=== PATIENT | male | born 1975 | race Caucasian/White ===

== ENCOUNTER 2016-11-22 08:50 | Inpatient (IN) | payer OTHER ==
[2016-11-22] MEDS ORDERED: ACETAMINOPHEN 500 MG TAB ONE (10:08)
[2016-11-22] MEDS ORDERED: HYDROmorphONE/DILAUDID 1 MG/ML SYR IVP ONE (10:45)
[2016-11-22] MEDS ORDERED: ACETAMINOPHEN 500 MG TAB PO ONE (10:45)
--- NOTE | 2016-11-22 10:59 | EDPHY ---
H & P Time Seen by Provider: 11/22/16 09:22 HPI/ROS: CHIEF COMPLAINT: Cough fever and headache HISTORY OF PRESENT ILLNESS: Patient's symptoms started 6 days ago. There has been a viral syndrome that is gone through his entire family including his and 3 kids. 1 of them is on antibiotics for pneumonia. Started with a headache and nonproductive cough and a fever last week on Tuesday which got better on Tuesday and worse over the weekend to a temperature of a 103 degrees over the weekend. He started on Augmentin at urgent care in [place] on Tuesday. Last night his temperature was 103.1degrees. Today presents with symptoms that are severe. He describes frontal headache and continued fever and cough. He does not have shortness of breath. Denies foreign travel to developing country or IV drug abuse. Not associated with neck stiffness. REVIEW OF SYSTEMS: Eye: no change in vision ENT: no sore throat Cardiac: no chest pain or syncope Pulmonary: HPI Abdomen: No vomiting or abdominal pain, he has some intermittent diarrhea as part of his ulcerative colitis but that is within baseline. Musculoskeletal: no back pain Skin: no rash Neuro: Frontal headache. No confusion or difficulty with speech or ataxia. Constitutional: HPI : no urinary symptoms A comprehensive 10 point review of systems is otherwise negative aside from elements mentioned in the history of present illness. PAST MEDICAL HISTORY: Ulcerative colitis on azathioprine Social history: No travel or IV drug abuse General Appearance: Alert and conversant, cooperative. Eyes: No scleral icterus. ENT, Mouth: Normal mucous membranes. Normal pharynx without trismus or tonsillar hypertrophy or exudate. Does not have facial swelling or sinus tenderness. Respiratory: Decreased breath sounds at the left base. Speaks in full sentences. Cardiovascular: Regular rate and rhythm. No murmur. Gastrointestinal: Abdomen is soft and non tender. Neurological: Alert and oriented x3. Normally conversant. Face symmetric, normal movement and sensation in all extremities. Skin: Warm and dry, no rashes. No petechiae or purpura. Musculoskeletal: Normal range of motion of the neck, not stiff, no meningeal signs. Psychiatric: Not agitated. Emergency Department course/MDM: Patient has chest x-ray which shows left lower lung pneumonia per Dr. Burgess at 10:30 a.m.. I was not personally able to view the images because the computer system was down at this time. At 10:32 a.m. explained the results to the patient including recommendation for admission for IV antibiotics because of failure of outpatient oral therapy. Ceftriaxone 1 g IV and azithromycin 500 mg IV. At this point my suspicion for meningitis or encephalitis is low. I think the potential benefit from lumbar puncture is outweighed by potential risk. This could be reassessed if his clinical picture changes. Patient currently looks nontoxic. Admitted with an infection but does not have sepsis or severe sepsis or septic shock. Constitutional: Initial Vital Signs Temperature (C) 37.2 C 11/22/16 11:46 Heart Rate 82 11/22/16 11:46 Blood Pressure 130/79 H 11/22/16 11:46 O2 Sat (%) 90 L 11/22/16 11:46 Allergies/Adverse Reactions: Sulfa (Sulfonamide Antibiotics) Allergy (Verified 11/22/16 10:21) Home Medications: Medication Instructions Recorded Herbals/Supplements -Info Only 1 each PO DAILY 11/22/16 azaTHIOprine [Imuran 50 mg (*)] 125 mg PO DAILY 11/22/16 Medical Decision Making - Diagnostics Imaging Results: Imaging Impressions Chest X-Ray 11/22/16 09:45 Impression: Infiltrate involving the posterior medial left lower lobe with tiny left pleural effusion. I provided a preliminary interpretation to Dr. Hayder Couch at 10:28 AM on 2016 regarding the above findings during [facility] downtime after reviewing images on the [employer] workstation. My final interpretation is concordant with my initial impression. Differential Diagnosis: Differential for fever considered including but not limited to meningitis, encephalitis, pneumonia, UTI, influenza. Consult/Admit Bed Type: [facility] for [place] [id number] - Data Points Laboratory Results: Laboratory Results 11/22/16 09:28 11/22/16 11/22/16 11/22/16 10:40 09:28 09:28 PT 13.4 SEC SEC (12.0-15.0) INR 1.03 (0.83-1.16) APTT 31.6 SEC SEC (23.0-38.0) VBG Lactic Acid 0.8 mmol/L mmol/L (0.7-2.1) Sodium 137 mEq/L mEq/L (134-144) Potassium 4.1 mEq/L mEq/L (3.5-5.2) Chloride 97 mEq/L mEq/L (97-110) Carbon Dioxide 29 mEq/l mEq/l (22-31) Anion Gap 11 mEq/L mEq/L (8-16) BUN 6 mg/dL L mg/dL (7-23) Creatinine 0.8 mg/dL mg/dL (0.7-1.3) Estimated GFR > 60 Glucose 91 mg/dL mg/dL (70-100) Calcium 9.3 mg/dL mg/dL (8.5-10.4) Total Bilirubin 1.0 mg/dL mg/dL (0.1-1.4) Medications Given: Discontinued Medications Acetaminophen (Tylenol) 1,000 mg PO EDNOW ONE Stop: 11/22/16 10:46 Last Admin: 11/22/16 10:58 Dose: 1,000 mg Hydromorphone HCl (Dilaudid) 0.5 mg IVP EDNOW ONE Stop: 11/22/16 10:46 Last Admin: 11/22/16 10:58 Dose: 0.5 mg Azithromycin 500 mg/ Dextrose 255 mls @ 255 mls/hr IV EDNOW ONE PRN Reason: Protocol Stop: 11/22/16 12:02 Last Admin: 11/22/16 12:31 Dose: 255 mls Ceftriaxone Sodium/Dextrose (Rocephin 1 Gm (Premix)) 50 mls @ 100 mls/hr IV EDNOW ONE PRN Reason: Protocol Stop: 11/22/16 11:32 Last Admin: 11/22/16 14:13 Dose: Not Given Sodium Chloride (Ns) 1,000 mls @ 0 mls/hr IV ONCE ONE PRN Reason: Wide Open Stop: 11/22/16 11:05 Last Admin: 11/22/16 11:35 Dose: 1,000 mls Sodium Chloride (Ns) 1,000 mls @ 0 mls/hr IV ONCE ONE PRN Reason: Wide Open Stop: 11/22/16 11:05 Last Admin: 11/22/16 11:38 Dose: Not Given Departure - Departure Disposition: [facility] Acute Clinical Impression: Pneumonia Qualifiers: Pneumonia type: due to unspecified organism Laterality: left Lung location: lower lobe of lung Qualified Code(s): J18.1 - Lobar pneumonia, unspecified organism Condition: Good
[2016-11-22] MEDS ORDERED: AZITHROMYCIN IV 500 MG in D5W 250 ML IV ONE (11:03)
[2016-11-22] MEDS ORDERED: NS 1,000 ML IV ONE ×2 (11:04)
[2016-11-22 11:34] LABS: ANION GAP 11 mEq/L (8-16); CALCIUM 9.3 mg/dL (8.5-10.4); CARBON DIOXIDE 29 mEq/l (22-31); CHLORIDE 97 mEq/L (97-110); CREATININE 0.8 mg/dL (0.7-1.3); GLOMERULAR FILTRATION RATE > 60; GLUCOSE 91 mg/dL (70-100); POTASSIUM 4.1 mEq/L (3.5-5.2); SODIUM 137 mEq/L (134-144)
[2016-11-22 12:40] LABS: % IMMATURE GRANULYOCYTES 0.4 % (0.0-1.1); ABSOLUTE IMMATURE GRANULOCYTES 0.03 10^3/uL (0.00-0.10); ADD DIFF? NO; ADD MORPH? NO; ADD SCAN? NO; ATYPICAL LYMPHOCYTE FLAG 0 (0-99); FRAGMENT RBC FLAG 50 (0-99); HEMATOCRIT 42.2 % (40.0-51.0); HEMOGLOBIN 14.6 g/dL (13.7-17.5); LEFT SHIFT FLG 40 (0-99); LIPEMIA HEMOLYSIS FLAG 90 (0-99); MEAN CELL HEMOGLOBIN 35.9 pg (27.9-34.1); MEAN CELL HEMOGLOBIN CONCENTR. 34.6 g/dL (32.4-36.7); MEAN CELL VOLUME 103.7 fL (81.5-99.8); MEAN PLATELET VOLUME 9.6 fL (8.7-11.7); PLATELET CLUMPS FLAG 10 (0-99); PLATELET COUNT 263 10^3/uL (150-400); RED BLOOD CELL COUNT 4.07 10^6/uL (4.40-6.38); RED CELL DISTRIBUTION WIDTH 13.8 % (11.5-15.2)
[2016-11-22 12:44] LABS: APTT 31.6 SEC (23.0-38.0); INR 1.03 (0.83-1.16); PROTIME(PATIENT) 13.4 SEC (12.0-15.0)
[2016-11-22] MEDS ORDERED: ONDANSETRON 4 MG/2 ML VIAL IVP PRN (13:00)
[2016-11-22] MEDS ORDERED: PROMETHAZINE HCL 25 MG/ML INJ IVP PRN (13:00)
[2016-11-22] MEDS ORDERED: ACETAMINOPHEN 325 MG TAB PO PRN (13:00)
[2016-11-22] MEDS ORDERED: oxyCODONE IR 5 MG TAB PO PRN (13:00)
--- NOTE | 2016-11-22 13:39 | GHP ---
[f rep st] HISTORY AND PHYSICAL DATE OF ADMISSION: 11/22/2016 CHIEF COMPLAINT: Headache and fever. HISTORY OF PRESENT ILLNESS: This is a 40-year-old male with history of ulcerative colitis, on azath ioprine, who presents to the emergency department with a 7-day history of severe headache and fever. He tells me his entire family has been sick with what sounds like a viral illness. He came down wit h a high fever on Tuesday that he says was between 101 and 103. This was associated with severe 9/ 0 bifrontal throbbing headache that was worse on the left than the right side. He has been taking s ome Tylenol at home with minimal relief. He denies any history of headaches. He denies any numbnes s or weakness. He denies any significant photo or phonophobia. Due to the persistent fevers, he was started on Augmentin on Tuesday for what sounds like a suspect ed sinusitis. Since starting the Augmentin, he has not really gotten better. He denies any signifi cant rhinorrhea, but has been having a productive cough. He denies any shortness of breath. He did develop some loose stools starting today. PAST MEDICAL HISTORY: Ulcerative colitis, immunosuppressed on azathioprine. PAST SURGICAL HISTORY: Pilonidal cysts drainage. HOME MEDICATIONS: Azathioprine 125 mg daily. ALLERGIES: SULFA MEDICATIONS cause hives. SOCIAL HISTORY: He lives in [place] with his and children. He denies any alcohol, tobacco, or i llicit drug use. FAMILY HISTORY: Reviewed and noncontributory. REVIEW OF SYSTEMS: Comprehensive 10-point review of systems was done, and it was negative, except f or as mentioned in the HPI. PHYSICAL EXAM: VITAL SIGNS: Blood pressure 124/72, pulse of 83, respiratory rate 16, O2 saturation 95% on room air, temperature afebrile. GENERAL: No acute distress. Nontoxic appearing. HEAD: N ormocephalic, atraumatic. Eyes are PERRLA. Sclerae are anicteric. MOUTH: Moist mucous membranes. NECK: Supple. No meningismus. Negative Kernig/Brudzinski signs. There is some anterior cervical lymphadenopathy. Posterior oropharynx is clear. CARDIOVASCULAR: S1, S2. No JVD. No lower extre mity edema. PULMONARY: Lungs are clear. No wheezes, rales, or rhonchi. ABDOMEN: Soft, nontender , nondistended. No guarding or rebound tenderness. Normoactive bowel sounds. EXTREMITIES: No clu bbing or cyanosis. NEURO: Cranial nerves 2-12 grossly intact. No focal motor or sensory deficits. SKIN: Clear, no rashes. DIAGNOSTICS: WBC 7.18, hemoglobin 14.6, hematocrit 42.2, platelets 263, INR 1.03. Sodium 137, pota ssium 4.1, chloride 97, CO2 29, BUN 6, creatinine 0.8, glucose 91. Head CT that I reviewed was nega tive for acute intracranial findings. Chest x-ray, which I visualized and personally interpreted, s hows a subtle left lower lobe infiltrate best seen on the lateral view. Final read is pending. ASSESSMENT AND PLAN: 1. This is a 40-year-old male with history of ulcerative colitis, immunosuppressed with azathioprin e, presenting with a week-long history of fever and headache, which I suspect is likely viral in asaf ology, and likely represents an improving aseptic meningitis. Plan: At this point, the patient jeremiah l be admitted to the hospital where he will be closely monitored given his immunosuppressed status. He has been started on Rocephin and azithromycin in the emergency department for the presumptive di agnosis of community-acquired pneumonia, which will be continued for now. We will treat his headach e with IV fluids as well as Toradol. If his condition worsens, I think it would be important to obt ain a lumbar puncture, but feel comfortable holding off on a lumbar puncture at this time since he i s nontoxic appearing and seems to be improving since the onset of his symptoms on Tuesday. 2. Possible community-acquired pneumonia, left lower lobe. Plan: Blood cultures have been sent. We will continue on Rocephin and azithromycin per the pneumonia order set. Likely be de-escalated b ack to Augmentin as he improves. 3. History of ulcerative colitis, now with some loose stool, likely antibiotic related. Plan: Con tinue to monitor and consider sending a stool for C difficile if worsens. 4. The patient is low risk for VTE, and we will order SCDs while in bed. Otherwise, he should be m obilized to prevent blood clots. /[id number]/MODL
[2016-11-22] MEDS: KETOROLAC 30 MG/1 ML SDV IVP PRN ×2 (13:50→20:22)
[2016-11-22] MEDS: guaiFENesin 600 MG TAB.ER PO SCH (20:22)
[2016-11-23] MEDS: KETOROLAC 30 MG/1 ML SDV IVP PRN ×2 (03:13→09:12)
[2016-11-23] MEDS: guaiFENesin 600 MG TAB.ER PO SCH ×2 (08:48→20:28)
[2016-11-23] MEDS: azaTHIOprine 50 MG TAB PO SCH (08:49)
[2016-11-23] MEDS ORDERED: AZITHROMYCIN IV 500 MG in D5W 250 ML IV SCH (09:00)
[2016-11-23] MEDS ORDERED: Herbals/Supplements -Info Only PO SCH (09:00)
--- NOTE | 2016-11-23 15:42 | HOSPPROG ---
Hospitalist Progress Note Assessment/Plan: DIAGNOSES: -FEVER -FRONTAL HEADACHE -? OF LLL INFILTRATE ON CHEST XRAY -FAMILY MEMBERS WITH RECENT FEBRILE ILLNESS -IMMUNE SUPPRESSION FROM AZATHIOPRINE -HX OF ULCERATIVE COLITIS PLANS: -check procalcitonin -consider possible repeat CXR if procalcitonin abnormal -West Nile Virus titre, influenza PCR, and follow blood cxs -I reviewed with Dr Vasquez who will see the pt SUBJECTIVE: still w headache and fevers no resp sxs OBJECTIVE Vitals reviewed: T max 38.8 this am otherwise stable Exam: alert oriented skin warm dry color ok resps not labored lungs clear BSs heart regular abd soft nondistended nontender, bowel sounds present limbs warm, no edema iv site ok I have reviewed his CXR of 11/22, and see the LLL abnormality, it is really minimal and I could not say for certain it represents pneumonia which he has little evidence for clinically Objective: Vital Signs Temp Pulse Resp BP Pulse Ox 36.6 C 64 18 119/85 H 93 11/23/16 07:55 11/23/16 07:55 11/23/16 07:55 11/23/16 07:55 11/23/16 07:55 Laboratory Results 11/22/16 11:08 11/22/16 11/23/16 11/24/16 06:59 06:59 06:59 Intake Total 1999 Balance 1999 PT 13.4 SEC (12.0-15.0) 11/22/16 09:28 INR 1.03 (0.83-1.16) 11/22/16 09:28 - Time Spent With Patient Time Spent with Patient: greater than 35 minutes Time Spent with Patient: Greater than 35 minutes spent on this patients care, greater than 50% of time spent counseling, educating, and coordinating care regarding the above mentioned plan. ICD10 Worksheet Patient Problems: Problems Problem Status Onset Pneumonia Acute
--- NOTE | 2016-11-23 20:04 | GCON ---
[f rep st] CONSULTATION INFECTIOUS DISEASE CONSULTATION DATE OF CONSULTATION: 11/23/2016 REFERRING PHYSICIAN: Tres Kim MD REASON FOR CONSULTATION: Headache and fever. HISTORY OF PRESENT ILLNESS: A 40-year-old male with a history of ulcerative colitis, on azathioprine since 2003, presents to the emergency room on 2016 complaining of a headache which he woke up with suddenly on 11/16/2016. The patient reports this is the worst headache of his life, but no clear photophobia. He also has some neck discomfort, but not clear stiffness. He also describes associated myalgia and, over the last several days, has developed a productive cough. Initially, the patient presented to an Urgent Care on 11/20/2016 and was started on Augmentin, but with continued fevers. On 11/22/2016, he presented to the emergency room and was admitted for monitoring. Blood cultures were obtained as well as a chest x-ray, which showed possible subtle left lower lobe infiltrate. The patient was empirically started on IV ceftriaxone and azithromycin. The patient has not received an annual influenza vaccination. His entire family has been ill with similar symptoms, starting with their 8-year -old approximately 1 month ago, had a fever for 4 nights. Their son developed a fever on 11/18/2016, which broke today. Their toddler was sick for 1 week. No specific diagnosis was made for any of the kids. They spontaneously got better. In addition, the was ill as well. The patient reports that today he felt better for the first time starting at 10: 00 a.m. His headaches were going from an 8/10 to 9/10, to 6/10 to 7/10. At midday, even further improvement. Currently, he has no headache. PAST MEDICAL HISTORY: Ulcerative colitis, on azathioprine 125 mg since 2003. He is monitored by Dr. Johnston. PAST SURGICAL HISTORY: Pilonidal cyst drainage. MEDICATIONS: At home, azathioprine 125 mg. in the hospital, ceftriaxone 1 g IV daily and azithromycin 500 mg daily. SOCIAL HISTORY: The patient lives in [place] with his and children. He is originally from [place], [place]. He came to [place] in 2003. He last had international travel June 2016 when he went to [place]. 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 He drinks a couple beers a week. Occasional tobacco. No influenza vaccination. He has 3 children. FAMILY HISTORY: No family history of ulcerative colitis. He reports a distant history of bone cancer. REVIEW OF SYSTEMS: A complete 10-point review of systems was performed and is negative, except as mentioned in the HPI. Pertinent negatives include: No diarrhea. No abdominal pain. No sore throat. No rash. No muscle weakness. ALLERGIES: Sulfa causes hives. This occurred in childhood. PHYSICAL EXAMINATION: GENERAL: Throughout the patient's hospital course, he has not had tachycardia or hypotension. This is a very well-appearing male sitting in bed, in no respiratory distress. CURRENT VITAL SIGNS: Blood pressure 122/83, heart rate 60, respiratory rate 18, saturation 96% on room air , temperature 36.7. T-max since hospitalization was at 38.8. That was at 3:00 a.m. this morning. HEENT: Pupils are reactive bilaterally. Oropharynx: Moist mucous membranes. Good dentition. No exudates or ulcerations were noted in the oropharynx or posterior pharynx. NECK: Supple. No lymphadenopathy. No meningismus. CARDIOVASCULAR: Regular rate. No murmurs. CHEST: Clear, except for some coarse rhonchi in the left lower lobe. ABDOMEN: Soft, nontender. Bowel sounds are present. EXTREMITIES: No clubbing, cyanosis, or edema. No joint swelling. NEUROLOGIC: The patient had a grossly normal motor exam as well as cranial nerve exam. He had fluent speech. He was alert and oriented x4. SKIN: No rashes. LABORATORY: White count 7, hematocrit 42, platelets of 263, 78% neutrophils. INR 1. Lactate 0.8. Creatinine 0.8. West Nile, influenza A and B, respiratory panel PCR are pending. Blood cultures collected at admission are pending. ASSESSMENT AND PLAN: This is a 40-year-old male who presents to the emergency room, who has chronic mild immunosuppression from azathioprine for ulcerative colitis, but no recent dose changes. His family had recently developed a viral illness with associated fever for 4-7 days, and subsequently the patient became sick approximately a week prior to admission. Differential diagnosis includes viral syndrome, such as influenza, enterovirus, metapneumovirus, etc., versus viral syndrome now complicated by bacterial pneumonia. RECOMMENDATIONS: 1. Viral panel PCR to rule out influenza as well as other viruses. Further, will assess for a bacterial infection such as mycoplasma pneumoniae and chlamydia pneumoniae. Would also obtain PCT to help tease out likelihood of bacterial PNA. 2. Will continue to monitor blood cultures. 3. Reasonable to continue antibiotics at this time with IV ceftriaxone, and will change azithromycin to p.o. 4. Would recommend the patient get annual influenza vaccinations and explained the mechanism by which flu generates immunity and that it is not a live vaccine. 5. Agree with obtaining procalcitonin to help sort out if this is a viral pneumonia versus bacterial pneumonia. TIME SPENT: 65 minutes, with greater than 50% of the time spent with education and counseling with patient and , with review of pathogenesis of viral syndromes, importance of hand washing and complication of antibiotics including C difficile. Thank you for this consultation. Will continue to follow on a daily basis. /[id number]/MODL MTDKatelin
[2016-11-24 00:14] VITALS: O2SAT 93
[2016-11-24 08:13] VITALS: BP 129/75; PULSE 71; RESP 16; TEMP 98.1
[2016-11-24] MEDS: azaTHIOprine 50 MG TAB PO SCH (08:57)
[2016-11-24] MEDS: guaiFENesin 600 MG TAB.ER PO SCH (08:58)
[2016-11-24] MEDS ORDERED: AZITHROMYCIN 250 MG TAB PO SCH (09:00)
--- NOTE | 2016-11-24 09:44 | PCMIDPN ---
Assessment/Plan: CAP, may be complication from viral infection (in light of all family members having proceeding illness) but resp panel negative. PCT elevated c/w bacterial PNA now. Clinically improved. Afebrile for 24 hours Recommend: * Azithro 250mg 3 more days * cefpodoxime 200mg po bid x 5 more days * Discussed with patient that he does not need to start p.o. antibiotics till 11/25/2016 because he received doses that last 24 hours today ID follow-up not needed but told patient if needs to be seen later he is welcome to call our office for follow-up. Case discussed with Dr. Tres Kim Subjective: Doing well. No diarrhea. No rash Objective: Vital Signs Temp Pulse Resp BP Pulse Ox 36.7 C 71 16 129/75 H 93 11/24/16 08:00 11/24/16 08:00 11/24/16 08:00 11/24/16 08:00 11/24/16 08:00 Microbiology 11/23/16 18:09 Respiratory Panel (PCR) - Final Nasal, Sinus - Swab No Organism Detected Laboratory Results 11/22/16 11:08 11/23/16 11/24/16 11/25/16 05:59 05:59 05:59 Intake Total 1999 950 Balance 1999 950 - Physical Exam General Appearance: alert, no apparent distress EENT: pharynx normal Respiratory: crackles (Left base), No accessory muscle use Extremities: No pedal edema Abdomen: non-tender, soft Skin: diaphoresis, No rash Neuro/Psych: alert, normal mood/affect, oriented x 3 - Time Spent With Patient Time Spent with Patient: greater than 25 minutes (Reviewed pathogenesis of bacterial pneumonia, planned treatment course, precautions with patient and his mother) Time Spent with Patient: Greater than 25 minutes spent on this patients care, greater than 50% of time spent counseling, educating, and coordinating care regarding the above mentioned plan. ICD10 Worksheet Patient Problems: Problems Problem Status Onset Pneumonia Acute
--- NOTE | 2016-11-24 18:35 | PDDCSUM ---
Discharge Summary Discharge Summary: DISCHARGE DIAGNOSES: -FEVER -FRONTAL HEADACHE -LIKELY LLL PNEUMONIA, COMMUNITY-ACQUIRED -FAMILY MEMBERS WITH RECENT FEBRILE ILLNESS -IMMUNE SUPPRESSION FROM AZATHIOPRINE -HX OF ULCERATIVE COLITIS CONSULTANTS: Dr. Haley Vasquez PROCEDURES: CT scan of head HOSPITAL COURSE SUMMARY:This patient came to the hospital 7 days of high fevers and severe frontal headache. He had no mass signs of meningismus. There were no neurologic abnormalities. He did have somewhat of a cough and a mild left lower lobe infiltrate on chest x-ray. a procalcitonin level was mildly elevated suggesting possible bacterial infection most likely pneumonia. He was not felt to have a bacterial meningitis. He was treated with antibiotics for community-acquired pneumonia and responded well with resolution of fevers and headaches. There were no other new symptoms or complications. A respiratory viral pathogen panel was negative and influenza testing was negative. He is tested at this time for West Nile virus which is pending. \ As the patient has immunosuppression due to chronic azathioprine therapy, was elected to treat him for 7 days with antibiotics and set of 5 days for his pneumonia. He is also recommended for close follow up with his primary care physician. PENDING TEST RESULTS: West Nile virus serologies MEDICATION CHANGES: Levofloxacin 750 mg daily for another 4 days FOLLOW-UP PLAN: With primary care physician next week Greater than 35 minutes bedside and care coordination time today
[2016-11-26 23:21] LABS: INTERPRETATION See Comments; WEST NILE VIRUS IGG Negative (Negative); WEST NILE VIRUS IGM Negative (Negative)
== END 2016-11-24 12:46 | disposition home or self-care (01) | DRG 194 ==
LOC: F3E 11:49
PROVIDERS: ADMIT Family Medicine; ATTEND Internal Medicine
DX: J15.9 Unspecified bacterial pneumonia (principal); K51.90 Ulcerative colitis, unspecified, without complications; Z79.899 Other long term (current) drug therapy
CPT/HCPCS: 96374; J0456; J0696; J1170; J1885; J2550; J7500